=== PATIENT | female | born 1970 | race Caucasian/White ===

== ENCOUNTER 2017-10-28 20:43 | Observation (INO) ==
--- NOTE | 2017-10-28 20:59 | Emergency Department Note ---
Disposition Clinical Impression: Chest pain Qualifiers: Chest pain type: unspecified Qualified Code(s): R07.9 - Chest pain, unspecified Disposition: Admitted As Inpatient Condition: Good Time of Disposition: 23:50 Chest Pain HPI - General Chief Complaint: ED Chest Pain Stated Complaint: CP Time Seen by Provider: 10/28/17 20:52 Source: patient, EMS Mode of arrival: EMS Limitations: no limitations Vital Signs Reviewed: Yes Nursing Notes Reviewed: Yes - History of Present Illness HPI Narrative: 47-year-old female pack per day smoker, hypertension presents to the ED via EMS for chest pain. States over the past week she has had intermittent episodes of chest pain. Describes it as a dull ache with some heaviness component mostly to her right chest wall. Nothing seems to make it better or worse. No particular duration. She thought this was mostly indigestion as she has been belching more frequently. 20 minutes prior to arrival she had a more severe sensation of heaviness with associated shortness of breath and lightheadedness. Symptoms resolve spontaneously within a minute. This occurred while at rest. Patient was given 324 mg aspirin by squad. She is currently chest pain free. No history of cardiac ischemic disease. No family history. She is cut down on smoking. 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 She is currently taking Prozac over the past 4 weeks. Denies any other complaints such as fever, illness, cough congestion. She does note some chills as well as her fingers feeling cold. Denies any abdominal pain, nausea or vomiting. Denies history of blood clots, malignancy, recent long-distance travel, hospitalization or surgeries. Chest pain workup initiated. EKG showed minimal ST depressions in the lateral leads. No old EKG available for comparison. Pt complaint: chest pain - Related Data Home Medications Medication Instructions Recorded Confirmed FLUoxetine HCl [PROzac] 20 mg PO DAILY 10/28/17 10/28/17 Lisinopril [Zestril] 20 mg PO DAILY 10/28/17 10/28/17 Multivitamin [One Daily 1 each PO DAILY 10/28/17 10/28/17 Multivitamin] Allergies Allergy/AdvReac Type Severity Reaction Status Date / Time latex Allergy Hives Verified 10/28/17 20:58 Sulfa (Sulfonamide Allergy Hives Verified 10/28/17 20:58 Antibiotics) All systems ED: reviewed and negative except as stated. Review of Systems: As Per HPI Constitutional: Reports: chills. Denies: fever ENT ED: Denies: throat pain, congestion Cardiovascular: Reports: chest pain. 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 Absent : tenderness, rash - Respiratory Respiratory exam: Present: normal lung sounds bilaterally. Absent: respiratory distress, wheezes - Cardiovascular Cardiovascular exam: Present: regular rate, normal rhythm, normal heart sounds - Expanded Cardiovascular Exam Peripheral pulses: 2+: radial (R), radial (L) - Abdominal Exam Abdominal exam: Present: soft, Non-Tender, normal bowel sounds. Absent: tenderness, distention, guarding, rebound, rigidity, Gan's sign - Extremities Exam Extremities exam: Present: normal inspection, full ROM, normal capillary refill , other (hands are cold to touch). Absent: tenderness, pedal edema, calf tenderness - Back Exam Back exam: Present: normal inspection, full ROM. Absent: tenderness - Neurological Exam Neurological exam: Present: alert, oriented X3 - Psychiatric Psychiatric exam: Present: normal affect, normal mood - Skin Skin exam: Present: warm, dry, intact, normal color. Absent: rash, cyanosis, diaphoresis Course - Reevaluation(s) Reevaluation #1: Patient had recurrence of symptoms that spontaneously resolved. Ativan was given and help with some of the symptoms. Patient appears more comfortable. Chest pain workup initiated Time: 21:25 Reevaluation #2: Patient offered admission for chest pain evaluation as her HEART score is 4. Troponin is <0.03. Aspirin given. Patient and family in agreement with plan. Impression is chest pain Time: 23:04 - Consultations Consultation #1: Spoke with on-call hospitalist jyoti Hurst to admit for chest pain with abnormal EKG. No further orders at this time Vital Signs Temperature 97.5 F L 10/28/17 20:46 Pulse Rate 83 10/28/17 20:46 Respiratory Rate 18 10/28/17 20:46 Blood Pressure 168/91 10/28/17 20:46 O2 Sat by Pulse Oximetry 99 10/28/17 20:46 Temperature 97.5 F L 10/28/17 20:46 Pulse Rate 81 10/28/17 22:50 Respiratory Rate 16 10/28/17 22:50 Blood Pressure 151/80 10/28/17 22:50 O2 Sat by Pulse Oximetry 95 10/28/17 22:50 Oxygen Delivery Oxygen Delivery Room Air Chest Pain - MDM Narrative Medical decision making narrative: Patient was discussed with my attending physician who agrees with ED management and final disposition. They independently evaluated the patient. Please refer to their attestation to this encounter for additional information. This note was generated by [employer] voice recognition software and as a result grammatical or spelling errors may occur using this program. - Medical Records Medical records reviewed: Yes I reviewed the patient's medical records. - Lab Data Lab results reviewed: Yes I reviewed the patient's lab results. Result diagrams: 10/28/17 21:10 10/28/17 21:10 Lab Results 10/28/17 10/28/17 10/28/17 Range/Units 21:10 21:10 21:10 WBC 12.4 H (4.3-11.1) K/mcL RBC 4.68 (3.82-4.97) M/mcL Hgb 13.6 (11.5-15.4) g/dL Hct 40.9 (35.3-44.9) % MCV 87.4 (83.0-100.0) fL MCH 29.1 (28.0-33.3) pg MCHC 33.3 (31.6-35.5) g/dL RDW 13.5 (11.5-14.5) % Plt Count 352 (140-400) K/mcL MPV 9.9 (9.4-12.4) fL Immature Gran % 0.4 (0-4) % Seg Neutrophils % 68.9 % Lymphocytes % 23.7 % Monocytes % 5.6 % Eosinophils % 0.9 % Basophils % 0.5 % Neutrophils # 8.6 (1.6-8.9) K/mcL Lymphocytes # 2.9 (0.6-4.6) K/mcL Monocytes # 0.7 (0.0-1.3) K/mcL Eosinophils # 0.1 (0.0-0.6) K/mcL Basophils # 0.1 (0.0-0.2) K/mcL Sodium 137 (136-145) mEq/L Potassium 3.6 (3.5-5.1) mEq/L Chloride 105 (98-107) mEq/L Carbon Dioxide 26 (23-29) mEq/L BUN 11 (6-20) mg/dL Creatinine 0.67 (0.60-1.20) mg/dL Est GFR ( Amer) > 60 (> 60) Est GFR (Non-Af Amer) > 60 (> 60) BUN/Creatinine Ratio 16 (6-26) Glucose 125 H (70-105) mg/dL Calculated Osmolality 285 (280-300) Calcium 9.4 (8.6-10.3) mg/dL Troponin I < 0.03 (< 0.04) ng/mL - Radiology Data Radiology results reviewed: Yes I reviewed the patient's radiology results. Chest X-Ray 10/28/17 20:55 IMPRESSION: No acute cardiopulmonary disease. D/ / Nick Hernandez MD / Nick Hernandez MD Interpreting Provider: Nick Hernandez MD - EKG Data EKG attestation: Yes I reviewed and interpreted this EKG. EKG results narrative: EKG performed 2046 interpreted by myself without cardiology assistance, normal sinus rhythm 85 bpm, incomplete right bundle branch block, physiologic T wave inversion seen and lead 3 and V1, T wave inversion in aVF. Some minimal ST depression seen in V4-V6. No ST elevations. Intervals are within normal limits. No old EKG available for comparison at this time. Heart Score - Score History: Slightly Suspicious EKG: Non Specific repolarisation Disturbance Age: 45-65 Risk Factors: Equal/Greater than 3 risk factor or history of atherosclerotic disease Troponin: Less than normal limit HEART Score Total: 4 Attestation Statement - Attestation Attestation: I examined this patient and my medical decision-making was reviewed with the Resident Physician. I agree with the documented findings, disposition and treatment plan as described except to the extent set forth below. Atypical chest pain. Suspect noncardiac in etiology however given ongoing symptoms we will proceed with admission for pain control and possible cardiac consultation.
[2017-10-28 21:18] LABS: Basophils # 0.1 K/mcL (0.0-0.2); Basophils % 0.5 %; Eosinophils # 0.1 K/mcL (0.0-0.6); Eosinophils % 0.9 %; Hematocrit 40.9 % (35.3-44.9); Hemoglobin 13.6 g/dL (11.5-15.4); Immature Granulocytes % 0.4 % (0-4); Lymphocytes # 2.9 K/mcL (0.6-4.6); Lymphocytes % 23.7 %; Mean Corpuscular HGB Conc 33.3 g/dL (31.6-35.5); Mean Corpuscular Hemoglobin 29.1 pg (28.0-33.3); Mean Corpuscular Volume 87.4 fL (83.0-100.0); Mean Platelet Volume 9.9 fL (9.4-12.4); Monocytes # 0.7 K/mcL (0.0-1.3); Monocytes % 5.6 %; Neutrophils # 8.6 K/mcL (1.6-8.9); Platelet Count 352 K/mcL (140-400); Red Blood Count 4.68 M/mcL (3.82-4.97); Red Cell Distribution Width 13.5 % (11.5-14.5); Segmented Neutrophils % 68.9 %
[2017-10-28] MEDS ORDERED: *HR* LORazepam 0.5 MG TABLET PO ONE (21:22)
[2017-10-28 21:32] LABS: BUN/Creatinine Ratio 16 (6-26); Blood Urea Nitrogen 11 mg/dL (6-20); Calcium 9.4 mg/dL (8.6-10.3); Carbon Dioxide 26 mEq/L (23-29); Chloride 105 mEq/L (98-107); Glucose 125 mg/dL (70-105); Osmolality,Calculated 285 (280-300); Potassium 3.6 mEq/L (3.5-5.1); Sodium 137 mEq/L (136-145); eGFR For African Americans > 60 (> 60); eGFR For Non-African Americans > 60 (> 60)
[2017-10-28] MEDS ORDERED: Nitroglycerin 1 INCH/GM PACKET TP ONE (22:53)
[2017-10-28] MEDS ORDERED: *HR* LORazepam 2 MG/ML VIAL IVP ONE (22:53)
[2017-10-29] MEDS ORDERED: Ondansetron 4 MG/2 ML VIAL IVP PRN (11:30)
[2017-10-29] MEDS ORDERED: Naloxone 0.4 MG/ML INJ IVP PRN (11:30)
[2017-10-29] MEDS ORDERED: *HR* HYDROcodone/Acet 5/325 mg TABLET PO PRN (11:30)
[2017-10-29] MEDS ORDERED: Acetaminophen 325 MG TABLET PO PRN (11:30)
--- NOTE | 2017-10-29 11:59 | Internal Med History&Physical ---
<Bill Guzman - Last Filed: 10/29/17 12:29> Date of Encounter: 10/29/17 Time of Encounter: 10:30 Assessment and Plan (1) Chest pain Current visit: Yes Status: Acute Acute chest pain. Pt. states chest pain present for the past two weeks w/pain in right chest that presents as combination of sharp/stabbing and dull ache intermittently. No alleviating or aggravating factors. Pain became worse last night w/radiation into neck, back, and arm. Reports these sx have never happened before and denies hx of cardiac issues, angioplasty, or stent placement. Initial troponin <0.03. Will trend x2. Echocardiogram ordered. NPO at midnight for a.m. nuclear pharm stress test. Begin aspirin therapy. Lipitor 80 mg ordered now continuation of 20 mg HS. Lipid panel in a.m. labs. Continue pts. lisinopril. Will consider cardiology consult if echocardiogram/ troponins/stress test results abnormal. Pt. discussed w/Dr. Barahona who agrees w/plan of care. Pt. is at high risk for cardiac event based on two-week sx of chest pain, risk factors of HTN and tobacco abuse, and new onset of CP. Observation. Qualifiers: Chest pain type: unspecified Qualified Code(s): R07.9 - Chest pain, unspecified (2) Fatigue Current visit: Yes Status: Acute Acute fatigue r/t current chest pain sx. Falls/safety precautions. Qualifiers: Fatigue type: other Qualified Code(s): R53.83 - Other fatigue (3) Tobacco abuse Current visit: Yes Status: Chronic Hx of chronic tobacco abuse. Pt. reports she smokes 1/2 PPD and is in the process of cutting back her use. Denies need for nicotine patch. (4) HTN (hypertension) Current visit: Yes Status: Chronic Hx of chronic HTN. Monitor pt. and VS. Continue pts. lisinopril. Qualifiers: Hypertension type: essential hypertension Qualified Code(s): I10 - Essential (primary) hypertension (5) Depression Current visit: Yes Status: Chronic Hx of chronic depression. Continue pts. Prozac. Qualifiers: Depression Type: unspecified Qualified Code(s): F32.9 - Major depressive disorder, single episode, unspecified (6) DVT prophylaxis Current visit: Yes Status: Acute Lovenox 40 mg 0600 daily for DVT prophylaxis. Monitor pt. for signs of bleeding. Internal Medicine - H&P: HPI Chief complaint: Chest pain Admitted From: Emergency Dept Plans for Post Hospital Care: Home History of present illness: Ms. Shell is a 47 year old female with medical hx of HLA B27 presents from the ED with chief complaint of chest pain that began 2 weeks ago and she describes as a combination of a dull ache and sharp/stabbing intermittent pain in the right chest with no alleviating or aggravating factors. Pt. states that the pain became worse last night w/radiation to the back, arm, and neck. Pt. also reports diaphoresis and pre-syncope. States this has never happened before. Pt. also reports fatigue. Pt. denies recent illness, fever, chills, cough, nausea, vomiting, changes in vision, headache, numbness, tingling, abdominal pain, diarrhea, constipation, dizziness, lightheadedness, or syncope. Past Med Surg Social Fam HX - Past Medical History Source: patient, old records reviewed Medical history: other (HLA B27) Psychiatric history: depression - Past Surgical History Surgical History: other (Tonsillectomy) - Social History Smoking Status: Current every day smoker Packs per day: 1/2 pack/day Smokeless Tobacco Status: No Alcohol use: occasionally Drug use: none Current living situation: Home, With Family Activity Level: Independent ambulation Recent Out of Country Travel Within the Last 8 Weeks: No Exposure or Possible Exposure to Illness During Travel: No - Family History Mother Race: Family Member Ethnicity: Non- Living Status: Still Living Hx Family Cardiac Disorders: Yes (Mitral valve prolapse) Hx Family Cancer: Yes (Breast) Hx Family Musculoskeletal Disorders: Yes (Osteoporosis) Hx Family Neuromuscular Disorders: No Hx Family Neurologic Disorders: No Hx Family HEENT Disorders: No Hx Family Autoimmune Disorders: No Hx Family Reproductive Disorders: No Hx Family Psychosocial Disorders: No Hx Family Medical Disorders: No Father Race: Family Member Ethnicity: Non- Living Status: Still Living Hx Family Cancer: Yes (Colon) Brother Race: Family Member Ethnicity: Non- Living Status: Still Living Hx Family Cardiac Disorders: Yes (Heart murmur) Hx Family Respiratory Disorders: Yes (COPD) Internal Medicine - H&P: Meds FLUoxetine HCl [PROzac] 20 mg PO DAILY 10/28/17 [History] Lisinopril [Zestril] 20 mg PO DAILY 10/28/17 [History] Multivitamin [One Daily Multivitamin] 1 each PO DAILY 10/28/17 [History] 3 Allergy/AdvReac Type Severity Reaction Status Date / Time latex Allergy Hives Verified 10/28/17 20:58 Sulfa (Sulfonamide Allergy Hives Verified 10/28/17 20:58 Antibiotics) All Systems PM: A 10-system review of systems was performed and is negative for pertinent findings except as documented above in the HPI. - Constitutional Constitutional: as per HPI, fatigue, no chills, no fever(s), no night sweats - EENT Eyes: no change in vision, no discharge, no pain, no photophobia Ears: no ear discharge, no ear pain, no tinnitus Nose, mouth and throat: no dysphagia, no nasal discharge, no neck pain, no sore throat - Breasts Breasts: as per HPI - Cardiovascular Cardiovascular ROS IM: as per HPI, chest pain, diaphoresis, no dyspnea, no lightheadedness, no palpitations, no syncope - Respiratory Respiratory: no cough, no dyspnea, no wheezing, no excessive phlegm production - Gastrointestinal Gastrointestinal: no abdominal pain, no diarrhea, no hematemesis, no hematochezia, no melena, no nausea, no vomiting - Genitourinary Genitourinary: no change in urinary stream, no dysuria, no flank pain, no hematuria Menstruation: as per HPI - Musculoskeletal Musculoskeletal ROS IM: no numbness, no tingling - Integumentary Integumentary IM: no rash, no unusual bruising - Neurological Neurological ROS: no confusion, no convulsions, no focal weakness, no numbness, no tingling, no tremor(s) - Psychiatric Psychiatric: as per HPI, depression - Endocrine Endocrine IM: as per HPI - Hematologic/Lymphatic Hematologic/Lymphatic: no easy bruising - Allergic/Immunologic Allergic/Immunologic: as per HPI - Constitutional Vitals: Temp Pulse Resp BP Pulse Ox 98.4 F 76 18 120/77 96 10/29/17 07:09 10/29/17 07:09 10/29/17 07:09 10/29/17 07:09 10/29/17 07:09 General appearance: Present: cooperative, A&O X 3, pleasant, no acute distress, obese, answers questions appropriately - Head Head exam: Present: atraumatic, normal inspection, normocephalic - Eye Eye exam: Present: PERRL, conjuntiva pink, sclera anicteric Pupils: Present: PERRL - ENT ENT exam: Present: normal exam - Neck Neck exam general surgery: Present: normal inspection - Respiratory Respiratory exam: Present: CTAB. Absent: accessory muscle use, rales, rhonchi, wheezes - Cardiovascular Cardiovascular exam: Present: RRR, +S1, +S2. Absent: diastolic murmur, gallop, rubs, systolic murmur - GI/Abdominal GI/Abdominal exam: Present: normal bowel sounds, soft, no peritoneal signs. Absent: distended, tenderness - Rectal Rectal exam: Present: deferred - Additional comments: exam deferred. - Extremities Exam Extremities exam: Present: warm, radial pulses palpable and symmetrical. Absent : calf tenderness, cyanotic, pedal edema - Back Exam Back exam: Present: normal inspection - Neurological Exam Neurological exam: Present: CN II-XII intact, oriented X3, no focal deficits. Absent: pronater drift, facial droop, speech deficit - Psychiatric Psychiatric exam: Present: normal affect, normal mood - Skin Skin exam: Present: dry, intact Internal Med - H&P Results - Labs CBC & Chem 7: 10/28/17 21:10 10/28/17 21:10 Labs: Cardiac Enzymes 10/29/17 Range/Units 10:36 Troponin I < 0.03 (< 0.04) ng/mL - EKG Data EKG shows normal: sinus rhythm - EKG Data Prior EKG available for review: no EKG comments: 10/29/17 12:10 EKG dated 10/29/17 shows sinus rhythm and incomplete right bundle branch block and nonspecific ST and T-wave abnormality. - Diagnostic Studies Chest x-ray Additional comments: Impressions Chest X-Ray 10/28/17 20:55 IMPRESSION: No acute cardiopulmonary disease. D/ / Nick Hernandez MD / Nick Hernandez MD Interpreting Provider: Nick Hernandez MD <Zan Barahona Last Filed: 10/29/17 15:55> Date of Encounter: 10/29/17 Time of Encounter: 12:45 - Constitutional Vitals: Temp Pulse Resp BP Pulse Ox 98.4 F 78 18 130/80 97 10/29/17 15:34 10/29/17 15:34 10/29/17 15:34 10/29/17 15:34 10/29/17 15:34 General appearance: Present: cooperative, pleasant, no acute distress - Respiratory Respiratory exam: Present: CTAB. Absent: chest wall tenderness, rales, rhonchi , wheezes - Cardiovascular Cardiovascular exam: Present: RRR, +S1, +S2. Absent: diastolic murmur, systolic murmur - GI/Abdominal GI/Abdominal exam: Present: normal bowel sounds, soft. Absent: guarding, rebound, tenderness - Extremities Exam Extremities exam: Present: full ROM, warm, radial pulses palpable and symmetrical. Absent: pedal edema, tenderness - Back Exam Back exam: Present: normal inspection. Absent: CVA tenderness (L), CVA tenderness (R) Internal Med - H&P Results - Labs CBC & Chem 7: 10/28/17 21:10 10/28/17 21:10 Labs: Cardiac Enzymes 10/29/17 Range/Units 10:36 Troponin I < 0.03 (< 0.04) ng/mL - EKG Data -: EKG Interpreted by Myself EKG shows normal: sinus rhythm - EKG Data EKG comments: 10/29/17 15:50 NSR; no acute changes; incomplete RBBB. - Impressions ITS Impressions Echocardiogram 10/29/17 09:34 Impressions: LVEF 60-65%. Mild left ventricular diastolic dysfunction. Normal right ventricular structure and function. No significant valvular dysfunction. No pulmonary hypertension. Left Ventricular Wall Motion: Rest Echo Findings All wall segments showed normal motion. Findings: Study Quality * Technically adequate exam. ECG Findings * Normal sinus rhythm. Left Ventricle * LVEF 60-65%. * Normal LV chamber size, wall thickness and function. * Mild left ventricular diastolic dysfunction. Right Ventricle * Normal right ventricular structure and function. Left Atrium * Normal left atrial size. Right Atrium * Normal right atrial size. Aortic Valve * No aortic regurgitation. * Aortic valve not well visualized. * No aortic stenosis. Mitral Valve * No mitral regurgitation. * Normal mitral valve structure. * No mitral stenosis. Tricuspid Valve * Tricuspid valve not well visualized. * No tricuspid regurgitation. * Estimated RA pressure is 3 mmHg. Pulmonic Valve * Pulmonic valve is not well visualized. * No pulmonic stenosis. * No pulmonic regurgitation. Pulmonary Artery * Pulmonary artery not well visualized. Aorta * Normally sized aortic root. Pericardium * There is no pericardial effusion present. IVC * Normal IVC dimensions and inspiratory collapse. Interatrial Septum * No evidence of PFO by color Doppler. - Diagnostic Studies Chest x-ray Status: image reviewed by me (negative) - Attending Attestation I discussed the patient [place], PMH, ROS, lab data, and exam findings with Jerald Guzman CNP. I then saw and examined patient independently as well. Patient is currently chest pain free, but her symptoms are worrisome for CAD. Patient counseled on the need to quit smoking. Initial EKG and troponins are negative. If they remain negative, we'll proceed with stress testing tomorrow. Other than my comments and noted exam findings, I agree with Jerald's assessment and plan.
[2017-10-29] MEDS: Aspirin Enteric Coated 81 MG Tablet PO SCH (14:05)
--- NOTE | 2017-10-29 16:28 | Electrocardiograph Report ---
[address] [place] [id number] Test Date: 2017-10-28 Pat Name: Almaz Shell Department: 103 Room: 3B16 Gender: F Certified Medical Coding Specialist: : 1970 Requested By: Jaime Arana Order Number: [id number] Reading MD: Maggie García Measurements Intervals [place] Rate: 85 P: 46 CA: 132 QRS: 54 QRSD: 110 T: -9 QT: 373 QTc: 415 Interpretive Statements SINUS RHYTHM INCOMPLETE RIGHT BUNDLE BRANCH BLOCK [90+ ms QRS DURATION, TERMINAL R IN V1/V2, 40+ ms S IN I/aVL/V4/V5/V6] NONSPECIFIC ST & T-WAVE ABNORMALITY - CONSIDER ISCHEMIA Electronically Signed On 10-29-2017 16:27:10 EST by Maggie García
[2017-10-30 04:11] LABS: Basophils # 0.1 K/mcL (0.0-0.2); Basophils % 0.6 %; Eosinophils # 0.2 K/mcL (0.0-0.6); Eosinophils % 1.6 %; Hematocrit 38.2 % (35.3-44.9); Hemoglobin 12.7 g/dL (11.5-15.4); Immature Granulocytes % 0.3 % (0-4); Lymphocytes # 4.2 K/mcL (0.6-4.6); Lymphocytes % 39.2 %; Mean Corpuscular HGB Conc 33.2 g/dL (31.6-35.5); Mean Corpuscular Hemoglobin 29.1 pg (28.0-33.3); Mean Corpuscular Volume 87.4 fL (83.0-100.0); Mean Platelet Volume 10.5 fL (9.4-12.4); Monocytes # 0.6 K/mcL (0.0-1.3); Monocytes % 5.9 %; Neutrophils # 5.6 K/mcL (1.6-8.9); Platelet Count 299 K/mcL (140-400); Red Blood Count 4.37 M/mcL (3.82-4.97); Red Cell Distribution Width 13.7 % (11.5-14.5); Segmented Neutrophils % 52.4 %
[2017-10-30 04:17] LABS: Hemoglobin A1C 5.3 %
[2017-10-30 04:30] LABS: Alanine Aminotransferase 9 Units/L (7-52); Albumin 3.8 g/dL (3.5-5.7); Albumin/Globulin Ratio 1.4 (1.1-2.2); Alkaline Phosphatase 59 Units/L (34-104); Aspartate Amino Transferase 10 Units/L (13-39); BUN/Creatinine Ratio 33 (6-26); Bilirubin,Total 0.3 mg/dL (0.3-1.0); Blood Urea Nitrogen 16 mg/dL (6-20); Calcium 9.1 mg/dL (8.6-10.3); Carbon Dioxide 24 mEq/L (23-29); Chloride 106 mEq/L (98-107); Chol/HDL Ratio 3.7 (0-4.9); Cholesterol 161 mg/dL (< 200); Globulin 2.8 g/dL (2.4-3.5); Glucose 92 mg/dL (70-105); HDL Cholesterol 44 mg/dL (40-59); LDL Cholesterol,Calculated 101 mg/dL (0-99); Magnesium 2.2 mg/dL (1.6-2.6); Osmolality,Calculated 283 (280-300); Potassium 4.1 mEq/L (3.5-5.1); Sodium 136 mEq/L (136-145); Total Protein 6.6 g/dL (6.4-8.9); Triglycerides 81 mg/dL (< 150); eGFR For African Americans > 60 (> 60); eGFR For Non-African Americans > 60 (> 60)
[2017-10-30] MEDS ORDERED: *HR* Enoxaparin 40 MG/0.4 ML SYRINGE SQ SCH (06:00)
[2017-10-30] MEDS ORDERED: Regadenoson 0.4 MG/5 ML SYRINGE IVP ONE (06:18)
[2017-10-30] MEDS ORDERED: FLUoxetine 20 MG CAPSULE PO SCH (09:00)
[2017-10-30] MEDS ORDERED: Lisinopril 20 MG TABLET PO SCH (09:00)
[2017-10-30] MEDS ORDERED: Multivit/Ca/Min/Fe/FA 1 TAB TABLET PO SCH (09:00)
[2017-10-30] MEDS: Aspirin Enteric Coated 81 MG Tablet PO SCH (11:40)
[2017-10-30 11:44] VITALS: BP 139/85
[2017-10-30] MEDS ORDERED: hydrOXYzine pamoate 25 MG CAPSULE PO SCH (15:00)
--- NOTE | 2017-10-30 15:06 | Discharge Summary ---
Date of Encounter: 10/30/17 Time of Encounter: 08:25 - Discharge Diagnosis (1) Chest pain Priority: Primary Status: Acute Comments: Patient reports 2 week history of right chest pain/tightness and dull "toothache " intermittently. She reports frequent night sweats and diaphoresis with pain. She denies any recent illnesses or sick contacts. She does report some correlation between the pain and cold drinks. Patient reports that night of admission to ER pain began on the right side with straight through to her back, she says that it felt like fire and hot liquid being poured down her neck, upper back, bilateral shoulders and arms. She had shortness of breath at that time. The pain is not reproducible and it is intermittent. Patient reports increased stress at home due to loss of close family member and stress at work. Very likely could be anxiety. Patient states that she has been on 2 SSRIs recently and reports hand swelling and itching with both medications. Troponins were negative, lipid profile was within normal limits, A1c is 5.3%. All labs are stable, chest x-rays negative, stress test was negative for ischemia or infarct with a gated EF of 72%, echocardiogram with preserved EF, mild LV DD no significant valvular dysfunction, normal wall motion in all segments. Recommend the patient follow up with primary care provider for continued evaluation of anxiety. Patient also could benefit from an EGD since she did have some symptoms with drinking cold liquids. Qualifiers: Chest pain type: unspecified Qualified Code(s): R07.9 - Chest pain, unspecified (2) Anxiety Priority: Secondary Status: Acute Comments: Patient with recent loss of dear family friend, stress at work. Have given patient hydroxyzine, will recommend patient follow up with primary care for continued evaluation. Patient reports that she has been on 2 SSRIs recently without success due to autoimmune disease and reactions to these medications. I will prescribe a small amount of hydroxyzine for home when necessary. (3) Fatigue Priority: Secondary Status: Acute Comments: Associated chest pain. Qualifiers: Fatigue type: other Qualified Code(s): R53.83 - Other fatigue (4) Tobacco abuse Priority: Secondary Status: Chronic Comments: Patient denies need for nicotine replacement therapy. Patient reports that she smokes one half pack daily and is in the process of trying to quit. (5) HTN (hypertension) Priority: Secondary Status: Chronic Comments: Well-controlled. Continue home medications. Qualifiers: Hypertension type: essential hypertension Qualified Code(s): I10 - Essential (primary) hypertension (6) DVT prophylaxis Priority: Secondary Status: Acute Comments: Lovenox subcutaneous daily. - Discharge Medications Prescriptions: hydrOXYzine pamoate [HydrOXYzine Pamoate] 25 mg PO BID PRN #14 capsule PRN Reason: Anxiety Home Medications: FLUoxetine HCl [Prozac] 20 mg PO DAILY 10/28/17 [History] Lisinopril [Zestril] 20 mg PO DAILY 10/28/17 [History] Multivitamin [One Daily Multivitamin] 1 each PO DAILY 10/28/17 [History] Atorvastatin [Lipitor] 40 mg PO HS tablet 10/30/17 [Rx] hydrOXYzine pamoate [HydrOXYzine Pamoate] 25 mg PO BID PRN #14 capsule 10/30/17 [Rx] Allergies/Adverse Reactions: 3 Allergy/AdvReac Type Severity Reaction Status Date / Time latex Allergy Hives Verified 10/28/17 20:58 Sulfa (Sulfonamide Allergy Hives Verified 10/28/17 20:58 Antibiotics) Procedures/tests Complete & Pending: Procedures Performed prior 72 hours Category Date Time Status NM humaira perf SPECT multi [NM] Routine Exams 10/30/17 10:00 Taken EV echocardiogram Routine Y 10/29/17 09:34 Completed SP pharm nuclear stress Routine Y 10/30/17 10:00 Completed Date of admission: 10/28/17 22:57 Primary care physician: Jose Powers Discharging clinician: Tami Keita Anticipated date of discharge: 10/30/17 - Patient Status Disposition: Home, Self-Care Condition: Good Functional capacity at discharge: independent ambulation Overall status at discharge: patient is back to baseline - Discharge Instructions Follow Up With: Jose Powers MD [Primary Care Provider] - 11/04/17 2:30 pm Additional Instructions: Follow up with primary care provider in the next 7-10 days. Return to the emergency department as needed for any other problems or concerns. Resume your normal home medications on discharge. Prescription called to [facility] pharmacy on [facility] [facility] [place]. Return to normal activities and diet as tolerated. - Diet and Activity Activity: increase activity as tolerated, resume usual activities as tolerated Diet: advance to your usual diet Hospital course: Ms. Shell is a 47 year old female see assessment and plan for hospital course. Time spent discussing smoking cessation with patient: 3 to 10 minutes - Time Spent with Patient Total time spent providing and/or coordinating discharge services: Less than 30 minutes - Constitutional Vitals: Temp Pulse Resp BP Pulse Ox 97.5 F L 70 19 139/85 95 10/30/17 11:43 10/30/17 11:43 10/30/17 11:43 10/30/17 11:43 10/30/17 11:43 General appearance: Present: cooperative, A&O X 3, pleasant, no acute distress, obese, answers questions appropriately - Head Head exam: Present: atraumatic, normal inspection, normocephalic - Eye Eye exam: Present: normal appearance, conjuntiva pink, sclera anicteric - Neck Neck exam general surgery: Present: supple, trachea midline. Absent: lymphadenopathy - Respiratory Respiratory exam: Present: CTAB. Absent: accessory muscle use, chest wall tenderness, decreased breath sounds, rales, rhonchi, wheezes - Cardiovascular Cardiovascular exam: Present: RRR, +S1, +S2. Absent: diastolic murmur, gallop, rubs, systolic murmur - GI/Abdominal GI/Abdominal exam: Present: normal bowel sounds, soft, no peritoneal signs. Absent: distended, hepatomegaly, tenderness - Extremities Exam Extremities exam: Present: normal capillary refill, normal inspection, warm. Absent: calf tenderness, cyanotic, pedal edema, tenderness - Neurological Exam Neurological exam: Present: alert, oriented X3, no focal deficits. Absent: facial droop, speech deficit - Skin Skin exam: Present: dry, intact, normal color, warm. Absent: rash
== END 2017-10-30 17:36 | disposition home or self-care (01) ==
LOC: 3BNU 20:43 → EMEROO 20:43 → 3BNU 23:41
PROVIDERS: ADMIT Internal Medicine; ATTEND Registered Nurse